=== PATIENT | female | born 1965 ===

== ENCOUNTER 2017-11-29 17:21 | Emergency (ER) | payer MEDICARE, OTHER ==
[2017-11-29 18:11] VITALS: RESP 18; BMI 37.2
[2017-11-29] MEDS ORDERED: Sodium Chloride 0.9% 1,000 ML IV STA (18:40)
--- NOTE | 2017-11-29 18:40 | ED PDOC ---
Arrival/HPI - General Chief Complaint: Abdominal Pain Time Seen by Provider: 11/29/17 18:31 Historian: Patient - History of Present Illness Narrative History of Present Illness (Text): 11/29/17 18:40 This 52 yo female with a PMH COPD, chronic back pain, smoker, presents to this ED c/o LLQ abdominal pain x 3 days. Denies rectal bleeding, n/v/d, sob, cp, urinary symptoms, or abnormal gait. Time/Duration: Other (3 days) Quality: Aching Context: Home Past Medical History - Provider Review Nursing Documentation Reviewed: Yes - Cardiac Hx Hypertension: Yes - Pulmonary Hx Asthma: Yes Hx Chronic Obstructive Pulmonary Disease (COPD): Yes - Neurological Hx Neurological Disorder: No - HEENT Hx HEENT Disorder: No - Renal Hx Renal Disorder: No - Endocrine/Metabolic Hx Endocrine Disorders: No - Hematological/Oncological Hx Blood Disorders: No - Integumentary Hx Dermatological Disorder: No - Musculoskeletal/Rheumatological Hx Musculoskeletal Disorders: No - Gastrointestinal Hx Gastroesophageal Reflux: Yes - Genitourinary/Gynecological Hx Genitourinary Disorders: No - Psychiatric Hx Psychophysiologic Disorder: No Hx Substance Use: No - Anesthesia Hx Anesthesia: No Hx Anesthesia Reactions: No Hx Malignant Hyperthermia: No - Suicidal Assessment Feels Threatened In Home Enviroment: No Family/Social History - Physician Review Nursing Documentation Reviewed: Yes Family/Social History: Other (noncontributory) Smoking Status: Heavy Smoker > 10 Cigarettes Daily Hx Alcohol Use: No Hx Substance Use: No Hx Substance Use Treatment: No Allergies/Home Meds Allergies/Adverse Reactions: Allergies No Known Allergies Allergy (Verified 11/29/17 17:54) Home Medications: Home Meds Medication Instructions Recorded Confirmed Albuterol HFA [Ventolin HFA 90 2 puff IH QID 09/23/14 11/29/17 mcg/actuation (8 g)] Baclofen [Baclofen] 10 mg PO TID 01/20/16 11/29/17 Zolpidem [Ambien] 10 mg PO DAILY 01/20/16 11/29/17 tiZANidine [Zanaflex] 4 mg PO DAILY 01/20/16 11/29/17 Albuterol HFA [Ventolin HFA 90 0.09 mg IH DAILY 11/29/17 11/29/17 mcg/actuation (8 g)] Aspirin [Aspirin Chewable] 81 mg PO DAILY 11/29/17 11/29/17 Bisacodyl [Correctol] 5 mg PO BID 11/29/17 11/29/17 Chlorzoxazone 500 mg PO BID 11/29/17 11/29/17 Famotidine [Pepcid] 40 mg PO DAILY 11/29/17 11/29/17 Losartan/Hydrochlorothiazide 1 tab PO DAILY 11/29/17 11/29/17 [Hyzaar 25 mg-100 mg] Multivitamin with Iron [Daily 1 each PO DAILY 11/29/17 11/29/17 Vitamin + Iron] Pantoprazole [Protonix] 40 mg PO DAILY 11/29/17 11/29/17 Tolterodine [Detrol] 2 mg PO DAILY 11/29/17 11/29/17 Topiramate [Topamax] 50 mg PO BID 11/29/17 11/29/17 amLODIPine [Norvasc] 10 mg PO DAILY 11/29/17 11/29/17 buPROPion [Bupropion HCl] 100 mg PO BID 11/29/17 11/29/17 oxyCODONE [oxyCODONE Immediate 5 mg PO Q6 11/29/17 11/29/17 Release Tab] Review of Systems - Review of Systems Constitutional: Normal. absent: Fatigue, Weight Change Eyes: Normal ENT: Normal Respiratory: Normal. absent: SOB, Cough Cardiovascular: Normal. absent: Chest Pain Gastrointestinal: Abdominal Pain. absent: Stool Changes, Constipation, Diarrhea , Nausea, Vomiting Genitourinary Female: Normal Musculoskeletal: Back Pain (chronic back pain). absent: Myalgias Skin: Normal. absent: Rash Neurological: Normal. absent: Headache, Dizziness, Focal Weakness, Gait Changes , Speech Changes, Facial Droop, Disequilibrium, Seizure Endocrine: Normal Hemo/Lymphatic: Normal Psychiatric: Normal Physical Exam Vital Signs Temp Pulse Resp BP Pulse Ox 11/29/17 17:54 98.6 F 101 H 18 128/87 98 Temperature: Afebrile Blood Pressure: Normal Pulse: Regular Respiratory Rate: Normal Appearance: Positive for: Well-Appearing, Non-Toxic, Comfortable Pain Distress: None Mental Status: Positive for: Alert and Oriented X 3 - Systems Exam Head: Present: Atraumatic, Normocephalic Pupils: Present: PERRL Extroacular Muscles: Present: EOMI Conjunctiva: Present: Normal Mouth: Present: Moist Mucous Membranes Neck: Present: Normal Range of Motion Respiratory/Chest: Present: Clear to Auscultation, Good Air Exchange. No: Respiratory Distress, Accessory Muscle Use Cardiovascular: Present: Regular Rate and Rhythm, Normal S1, S2. No: Murmurs Abdomen: Present: Tenderness (mild LLQ abdominal pain). No: Distention, Peritoneal Signs, Rebound, Guarding Back: Present: Normal Inspection. No: CVA Tenderness, Paraspinal Tenderness, Pain with Leg Raise Upper Extremity: Present: Normal Inspection, Normal ROM. No: Cyanosis, Edema Lower Extremity: Present: Normal Inspection, NORMAL PULSES, Neurovascularly Intact, Capillary Refill < 2 s. No: Edema, CALF TENDERNESS, Normal ROM Neurological: Present: GCS=15, CN II-XII Intact, Speech Normal Skin: Present: Warm, Dry, Normal Color. No: Rashes Psychiatric: Present: Alert, Oriented x 3, Normal Insight, Normal Concentration Medical Decision Making ED Course and Treatment: 11/29/17 22:07 Re-evaluation. Patient feels better. Discussed results and plan with patient who expresses understanding. All questions answered and there is agreement with the plan to discharge home with instructions. Patient stable for discharge. Return if symptoms persist or worsen. Re-evaluation Time: 22:07 Reassessment Condition: Re-examined, Improved - Lab Interpretations Lab Results: 11/29/17 19:33 11/29/17 19:33 Lab Results 11/29/17 19:34: Urine Color Yellow, Urine Appearance Clear, Urine pH 6.0, Ur Specific [place] >= 1.030, Urine Protein Negative, Urine Glucose (UA) Negative, Urine Ketones Negative, Urine Blood Small H, Urine Nitrate Negative, Urine Bilirubin Negative, Urine Urobilinogen 0.2, Ur Leukocyte Esterase Negative, Urine RBC 0 - 2, Urine WBC Negative, Ur Epithelial Cells 0 - 2, Urine Bacteria Neg 11/29/17 19:33: Sodium 143, Potassium 3.5 L, Chloride 102, Carbon Dioxide 31, Anion Gap 13, BUN 13, Creatinine 0.8, Est GFR ( Amer) > 60, Est GFR (Non- Af Amer) > 60, Random Glucose 96, Calcium 9.5, Total Bilirubin 0.2, AST 26, ALT 34, Alkaline Phosphatase 75, Total Protein 7.2, Albumin 4.0, Globulin 3.3, Albumin/Globulin Ratio 1.2, Lipase 116 11/29/17 19:33: WBC 7.3, RBC 4.34, Hgb 13.1, Hct 39.9, MCV 91.9, MCH 30.2, MCHC 32.8, RDW 15.7 H, Plt Count 196, MPV 9.5, Gran % 54.0, Lymph % (Auto) 37.2 H, [place] % (Auto) 5.7, Eos % (Auto) 2.8, Baso % (Auto) 0.3, Gran # 3.92, Lymph # ( Auto) 2.7, [place] # (Auto) 0.4, Eos # (Auto) 0.2, Baso # (Auto) 0.02 I have reviewed the lab results: Yes Interpretation: No clinic. lab abnormalty - RAD Interpretation Narrative RAD Interpretations (Text): 11/29/17 22:06 Patient Name: KODAK ARELLANO Pt. Address: [address] [place] [address] Med. Rec #: [id number] [place] [address]: Imelda Wilburn PA-C Pt Order Location: ED : 1965 Female Age: 52 Order #: [id number] Reason for exam: LLQ abdominal pain CT Scan ABD PELVIS IV CONTRAST ONLY Exam Date: 11/29/17 This imaging exam was performed at [facility] EXAM: CT Abdomen and Pelvis With Intravenous Contrast FINDINGS: Lung bases: Unremarkable. No mass. No consolidation. ABDOMEN: Liver: Hepatic steatosis. Hepatomegaly. Gallbladder and bile ducts: Unremarkable. No calcified stones. No ductal dilation. Pancreas: Unremarkable. No mass. No ductal dilation. Spleen: Unremarkable. No splenomegaly. Adrenals: Unremarkable. No mass. Kidneys and ureters: Unremarkable. No solid mass. No hydronephrosis. Stomach and bowel: Sigmoid diverticulosis. Mild stranding of the fat in the left lower quadrant. Axial image #63, adjacent to a fatty, fingerlike structure. Findings suggestive of epiploic appendagitis. Appendix: No findings to suggest acute appendicitis. PELVIS: Bladder: Unremarkable. No mass. Reproductive: Unremarkable as visualized. ABDOMEN and PELVIS: Intraperitoneal space: See above. Bones/joints: Lumbar spinal fusion with hardware at L5-S1. No acute fracture. No dislocation. Soft tissues: Unremarkable. Vasculature: Atherosclerotic vascular disease. No abdominal aortic aneurysm. Lymph nodes: Unremarkable. No enlarged lymph nodes. IMPRESSION: 1. Sigmoid diverticulosis, without evidence of acute diverticulitis. 2. Subtle stranding of the pericolonic fat in the left lower quadrant, suggestive of epiploic appendagitis. See above. 3. Remainder of findings as above. Radiology Orders: 11/29/17 20:54 ABD & PELVIS IV CONTRAST ONLY [CT] Stat - Medication Orders Current Medication Orders: Discontinued Medications Famotidine (Pepcid) 20 mg IVP STAT STA Stop: 11/29/17 18:41 Last Admin: 11/29/17 19:16 Dose: 20 mg IVP Administration Document 11/29/17 19:16 GMD (Rec: 11/29/17 19:16 GMD [id number]) Charges for Administration # of IVP Administrations 1 Sodium Chloride (Sodium Chloride 0.9%) 1,000 mls @ 1,000 mls/hr IV .Q1H STA Stop: 11/29/17 19:39 Last Admin: 11/29/17 19:16 Dose: 1,000 mls/hr eMAR Start Stop Document 11/29/17 19:16 GMD (Rec: 11/29/17 19:16 GMD [id number]) Intravenous Solution Start Date 11/29/17 Start Time 19:16 End Date 11/29/17 End time 20:16 Total Infusion Time 60 Ketorolac Tromethamine (Toradol) 15 mg IVP STAT STA Stop: 11/29/17 18:41 Last Admin: 11/29/17 19:16 Dose: 15 mg MAR Pain Assessment Document 11/29/17 19:16 GMD (Rec: 11/29/17 19:16 GMD [id number]) Pain Reassessment Is this a pain reassessment? No Presence of Pain Presence of Pain Yes IVP Administration Document 11/29/17 19:16 GMD (Rec: 11/29/17 19:16 GMD [id number]) Charges for Administration # of IVP Administrations 1 Ondansetron HCl (Zofran Inj) 4 mg IVP STAT STA Stop: 11/29/17 18:41 Last Admin: 11/29/17 19:16 Dose: 4 mg IVP Administration Document 11/29/17 19:16 GMD (Rec: 11/29/17 19:16 GMD [id number]) Charges for Administration # of IVP Administrations 1 Disposition/Present on Arrival - Present on Arrival Any Indicators Present on Arrival: No History of DVT/PE: No History of Uncontrolled Diabetes: No Urinary Catheter: No History of Decub. Ulcer: No History Surgical Site Infection Following: None - Disposition Have Diagnosis and Disposition been Completed?: Yes Diagnosis: Nonspecific abdominal pain Disposition: HOME/ ROUTINE Disposition Time: 22:09 Patient Plan: Discharge Condition: IMPROVED Discharge Instructions (ExitCare): Acute Abdomen (Belly Pain), Adult (DC) Additional Instructions: Call private doctor for follow up visit in 1-2 days. Take medication as instructed. Return to emergency if symptoms worsen. Prescriptions: Famotidine [Pepcid] 40 mg PO DAILY #10 tablet Polyethylene Glycol 3350 [Miralax] 17 gm PO DAILY #1 packet Referrals: Hernesto Osborn MD [Primary Care Provider] - Follow up with primary Forms: [facility] [facility] (Yoruba), WORK NOTE
[2017-11-29 19:37] LABS: URINE BILIRUBIN NEGATIVE (NEGATIVE); URINE BLOOD SMALL (NEGATIVE); URINE GLUCOSE (UA) NEGATIVE (NEGATIVE); URINE LEUKOCYTE ESTERASE NEGATIVE Leu/uL (NEGATIVE); URINE PROTEIN NEGATIVE mg/dL (<30 mg/dL); URINE UROBILINOGEN 0.2 E.U./dL (<1 E.U./dL)
[2017-11-29 19:38] LABS: BASO # 0.02 K/mm3 (0.0-2.0); BASO % 0.3 % (0.0-3.0); EOS # 0.2 (0.0-0.7); EOS % 2.8 % (1.5-5.0); GRAN # 3.92 (1.4-6.5); HEMOGLOBIN 13.1 g/dL (12.0-16.0); LYMPH # 2.7 (1.2-3.4); LYMPH % 37.2 % (22.0-35.0); MEAN CELL VOLUME 91.9 fl (80.0-105.0); MEAN CORPUSCULAR HEMOGLOBIN 30.2 pg (25.0-35.0); MEAN CORPUSCULAR HGB CONC 32.8 g/dl (31.0-37.0); MEAN PLATELET VOLUME 9.5 fl (7.0-11.0); MONO # 0.4 (0.1-0.6); MONO % 5.7 % (1.0-6.0); RBC 4.34 10^6/uL (3.5-6.1); RED CELL DISTRIBUTION WIDTH 15.7 % (11.5-14.5); WHITE BLOOD COUNT 7.3 10^3/ul (4.5-11.0)
[2017-11-29 19:45] LABS: URINE APPEARANCE CLEAR (CLEAR); URINE COLOR YELLOW (YELLOW)
[2017-11-29 19:52] LABS: ALB/GLOB RATIO 1.2 (1.1-1.8); ALT/SGPT 34 U/L (7-56); AST/SGOT 26 U/L (14-36); BLOOD UREA NITROGEN 13 mg/dL (7-21); CALCIUM 9.5 mg/dL (8.4-10.5); GFR AFRICAN-AMERICAN > 60; GFR NON-AFRICAN AMERICAN > 60; LIPASE 116 U/L (23-300)
[2017-11-29 19:57] LABS: URINE BACTERIA NEG (NEG); URINE EPITHELIAL CELLS 0 - 2 /hpf (0-5); URINE RBC 0 - 2 /hpf (0-2); URINE WBC NEGATIVE /hpf (0-6)
[2017-11-29] MEDS ORDERED: Iohexol 350 MG/100 ML VIAL ONE (20:44)
--- NOTE | 2017-11-29 21:58 | CT ---
EXAM: CT Abdomen and Pelvis With Intravenous Contrast CLINICAL HISTORY: 52 years old, female; Pain; Abdominal pain; Localized; Left lower quadrant (llq); Additional info: Llq abdominal pain TECHNIQUE: Axial computed tomography images of the abdomen and pelvis with intravenous contrast. All CT scans at this facility use one or more dose reduction techniques, viz.: automated exposure control; ma/kV adjustment per patient size (including targeted exams where dose is matched to indication; i.e. head); or iterative reconstruction technique. Coronal and sagittal reformatted images were created and reviewed. CONTRAST: 100 mL of OMNI 350 administered intravenously. COMPARISON: No relevant prior studies available. FINDINGS: Lung bases: Unremarkable. No mass. No consolidation. ABDOMEN: Liver: Hepatic steatosis. Hepatomegaly. Gallbladder and bile ducts: Unremarkable. No calcified stones. No ductal dilation. Pancreas: Unremarkable. No mass. No ductal dilation. Spleen: Unremarkable. No splenomegaly. Adrenals: Unremarkable. No mass. Kidneys and ureters: Unremarkable. No solid mass. No hydronephrosis. Stomach and bowel: Sigmoid diverticulosis. Mild stranding of the fat in the left lower quadrant. Axial image #63, adjacent to a fatty, fingerlike structure. Findings suggestive of epiploic appendagitis. Appendix: No findings to suggest acute appendicitis. PELVIS: Bladder: Unremarkable. No mass. Reproductive: Unremarkable as visualized. ABDOMEN and PELVIS: Intraperitoneal space: See above. Bones/joints: Lumbar spinal fusion with hardware at L5-S1. No acute fracture. No dislocation. Soft tissues: Unremarkable. Vasculature: Atherosclerotic vascular disease. No abdominal aortic aneurysm. Lymph nodes: Unremarkable. No enlarged lymph nodes. IMPRESSION: 1. Sigmoid diverticulosis, without evidence of acute diverticulitis. 2. Subtle stranding of the pericolonic fat in the left lower quadrant, suggestive of epiploic appendagitis. See above. 3. Remainder of findings as above.
[2017-11-29 22:23] VITALS: BP 136/97; PULSE 82; TEMP 98.2; O2SAT 100
== END 2017-11-29 22:23 | disposition home or self-care (01) ==
LOC: ED 17:21
DX: R10.32 Left lower quadrant pain (principal); I10 Essential (primary) hypertension; F17.210 Nicotine dependence, cigarettes, uncomplicated
CPT/HCPCS: 74177; 80053; 81001; 83690; 85025; 96361; 96374; 96375; 99284; J1885; J2405; J7040; Q9967

== ENCOUNTER 2019-01-07 12:37 | Outpatient (CLI) | payer MEDICARE | END 2019-01-07 12:38 | disposition home or self-care (01) | LOC: RAD 12:37 ==